=== PATIENT | female | born 1965 | race Caucasian/White ===

== ENCOUNTER 2020-12-17 09:04 | Emergency (ER) | payer SELFPAY ==
[~2020-12-17] VITALS: Ht 160 cm; Wt 102.0 kg
[2020-12-17 09:20] VITALS: BP 151/85
[2020-12-17] MEDS ORDERED: P20 MT (12:22)
[2020-12-17] MEDS ORDERED: AZIT250T12 MT (12:22)
[2020-12-17] MEDS ORDERED: ALBU6.7H9 INH (12:22)
== END 2020-12-17 13:01 | disposition home or self-care (01) ==
LOC: ER 09:04
DX: Z20.822 Contact with and (suspected) exposure to COVID-19 (principal); J20.9 Acute bronchitis, unspecified; R06.2 Wheezing; M79.7 Fibromyalgia; Z90.49 Acquired absence of other specified parts of digestive tract; Z90.710 Acquired absence of both cervix and uterus; Z98.890 Other specified postprocedural states
CPT/HCPCS: 71045; 99284; C9803; U0003; U0005